=== PATIENT | female | born 1975 | race Caucasian/White ===

== ENCOUNTER 2024-04-26 22:48 | Inpatient (IN) ==
[2024-04-26] MEDS ORDERED: IOPAMIDOL 100 ML BOTTLE IV ONE (22:49)
[2024-04-26] MEDS: IPRATROPIUM/ALBUTEROL 3 ML AMPUL.NEB NEB ONE (23:02)
[2024-04-26] MEDS: methylPREDNISolone SOD SUCC 125 MG/2 ML VIAL IV ONE (23:16)
[2024-04-26 23:26] LABS: Basophils # (Auto) 0.05 K/mcL (0.00-0.30); Basophils % (Auto) 0.2 % (0.0-2.0); Eosinophils # (Auto) 0.07 K/mcL (0.00-0.70); Eosinophils % (Auto) 0.3 % (0.0-7.0); Hematocrit 37.9 % (34.1-44.9); Hemoglobin 11.7 g/dL (11.2-15.7); Lymphocytes # (Auto) 2.64 K/mcL (1.50-4.80); Lymphocytes % (Auto) 11.9 % (15.5-49.0); Mean Cell Volume 91.3 fL (80.0-100.0); Mean Corpuscular HGB Conc 30.9 g/dL (31.0-36.0); Mean Platelet Volume 8.4 fL (8.8-12.5); Monocytes # (Auto) 2.35 K/mcL (0.10-0.90); Monocytes % (Auto) 10.6 % (1.0-12.0); Neutrophils % (Auto) 76.6 % (38.0-78.0); Platelet Count 351 K/mcL (140-440); RBC 4.15 M/mcL (3.59-5.38); WBC 22.1 K/mcL (4.5-11.0)
[2024-04-26 23:39] LABS: ALT/SGPT 11 U/L (<40); AST/SGOT 17 U/L (<32); Albumin 3.9 gm/dL (3.2-5.2); Albumin/Globulin Ratio 1.2 (1.0-2.3); Alkaline Phosphatase 74 U/L (39-117); Bilirubin,Total < 0.2 mg/dL (0.1-1.0); Blood Urea Nitrogen 4 mg/dL (6-20); Calcium 8.8 mg/dL (8.6-10.4); Carbon Dioxide 20 mmol/L (22-30); Chloride 102 mmol/L (96-108); Globulin 3.2 gm/dL (2.2-3.7); Glomerular Filtration Rate 103; Glucose 114 mg/dL (70-105)
[2024-04-27] MEDS: IPRATROPIUM/ALBUTEROL 3 ML AMPUL.NEB NEB ONE (00:07)
[2024-04-27] MEDS: ONDANSETRON 4 MG/2 ML VIAL IV ONE (00:07)
[2024-04-27] MEDS: ACETAMINOPHEN 500 MG TABLET PO ONE (00:07)
[2024-04-27] MEDS: morphine 2 MG/ML VIAL IV ONE (01:28)
[2024-04-27] MEDS: cefTRIAXone 2 GM in DEXTROSE 5% IN WATER 50 ML IV SCH (02:30)
[2024-04-27] MEDS: 0.9 % SODIUM CHLORIDE 1,000 ML IV SCH (03:41)
[2024-04-27] MEDS: morphine 4 MG/ML VIAL IV PRN (04:27)
[2024-04-27] MEDS: BENZONATATE 100 MG CAPSULE PO SCH (04:27)
[2024-04-27] MEDS: guaiFENesin 600 MG TAB.SR.12H PO PRN (04:27)
[2024-04-27] MEDS: 0.9 % SODIUM CHLORIDE 10 ML SYRINGE IV SCH (05:13)
[2024-04-27] MEDS: cefTRIAXone 2 GM in DEXTROSE 5% IN WATER 50 ML IV ONE (06:02)
[2024-04-27] MEDS: BUDESONIDE 0.5 MG/2 ML AMPUL.NEB NEB SCH (08:40)
[2024-04-27] MEDS: ALBUTEROL SULFATE 2.5 MG/3 ML NEBULIZER NEB PRN (08:40)
[2024-04-27] MEDS: ACETAMINOPHEN 325 MG TABLET PO PRN (08:49)
[2024-04-27] MEDS: PANTOPRAZOLE 40 MG TABLET PO SCH ×2 (08:49→13:07)
[2024-04-27] MEDS ORDERED: guaiFENesin 600 MG TAB.SR.12H PO SCH (09:15)
[2024-04-27] MEDS: NICOTINE 14 MG PATCH TOPICAL SCH (10:29)
[2024-04-27] MEDS: LEVOFLOXACIN 750 MG/150 ML BAG IV SCH (10:29)
[2024-04-27] MEDS ORDERED: HYDROcodone/APAP (PP) 5/325MG TABLET (#4) PO PRN (11:36)
[2024-04-27] MEDS ORDERED: traMADol 50 MG TABLET PO PRN (11:40)
[2024-04-27] MEDS ORDERED: ONDANSETRON 4 MG ODT TABLET SL PRN (11:56)
[2024-04-27] MEDS: NITROGLYCERIN 0.4 MG TAB.SUBL SL PRN (12:05)
[2024-04-27] MEDS: DILTIAZEM 180 MG CAP.XL.24H PO SCH (12:05)
[2024-04-27] MEDS: ATORVASTATIN 40 MG TABLET PO SCH (12:05)
[2024-04-27] MEDS: guaiFENesin/CODEINE 10 ML UDC PO PRN (12:05)
[2024-04-27] MEDS: SPIRONOLACTONE 25 MG TABLET PO SCH (12:05)
[2024-04-27] MEDS: ASPIRIN 81 MG TAB.CHEW PO SCH (12:06)
[2024-04-27] MEDS: CLOPIDOGREL 75 MG TABLET PO SCH (12:06)
[2024-04-27] MEDS: SERTRALINE 100 MG TABLET PO SCH (12:06)
[2024-04-27] MEDS: METOPROLOL SUCCINATE 25 MG TAB.XL.24H PO SCH (12:06)
[2024-04-27] MEDS: ISOSORBIDE MONONITRATE 60 MG TAB.XL.24H PO SCH (12:06)
[2024-04-27] MEDS: MAGNESIUM OXIDE 400 MG TABLET PO SCH (12:06)
[2024-04-27] MEDS: Dapagliflozin Propanediol [Farxiga] 10 mg tablet PO SCH (13:05)
[2024-04-27] MEDS: IPRATROPIUM/ALBUTEROL 3 ML AMPUL.NEB NEB SCH (13:07)
[2024-04-27] MEDS: methylPREDNISolone SOD SUCC 40 MG/ML VIAL IV SCH (14:06)
[2024-04-27] MEDS: HYDROcodone/APAP 5/325MG TABLET PO PRN (14:06)
[2024-04-27] MEDS: guaiFENesin 600 MG TAB.SR.12H PO SCH (21:09)
[2024-04-27] MEDS: LORazepam 0.5 MG TABLET PO PRN (21:09)
[2024-04-27] MEDS: Sacubitril-Valsartan [Entresto] 97-103 mg tablet PO SCH (21:10)
[2024-04-27] MEDS: GABAPENTIN 100 MG CAPSULE PO PRN (21:13)
[2024-04-28] MEDS: ONDANSETRON 4 MG/2 ML VIAL IV PRN (02:32)
[2024-04-28] MEDS: LIRAGLUTIDE SUB-Q SCH (09:38)
[2024-04-28] MEDS: LEVOFLOXACIN 750 MG TABLET PO SCH (10:23)
[2024-04-28] MEDS: PNEUMOCOCCAL 23-VAL P-SAC VAC 0.5 ML SYRINGE IM ONE (10:43)
[2024-04-28 13:29] LABS: Basophils # (Auto) 0.01 K/mcL (0.00-0.30); Basophils % (Auto) 0 % (0.0-2.0); Eosinophils # (Auto) 0 K/mcL (0.00-0.70); Eosinophils % (Auto) 0 % (0.0-7.0); Hematocrit 38.2 % (34.1-44.9); Hemoglobin 11.7 g/dL (11.2-15.7); Lymphocytes # (Auto) 1.11 K/mcL (1.50-4.80); Lymphocytes % (Auto) 5.1 % (15.5-49.0); Mean Cell Volume 92.7 fL (80.0-100.0); Mean Corpuscular HGB Conc 30.6 g/dL (31.0-36.0); Mean Platelet Volume 8.8 fL (8.8-12.5); Monocytes # (Auto) 1.01 K/mcL (0.10-0.90); Monocytes % (Auto) 4.6 % (1.0-12.0); Neutrophils % (Auto) 89.9 % (38.0-78.0); Platelet Count 384 K/mcL (140-440); RBC 4.12 M/mcL (3.59-5.38); Red Cell Distribution Width 18.1 % (11.5-14.5); WBC 21.9 K/mcL (4.5-11.0)
[2024-04-28 14:09] LABS: ALT/SGPT 9 U/L (<40); AST/SGOT 15 U/L (<32); Albumin 3.7 gm/dL (3.2-5.2); Albumin/Globulin Ratio 1.1 (1.0-2.3); Alkaline Phosphatase 68 U/L (39-117); Bilirubin,Total < 0.2 mg/dL (0.1-1.0); Blood Urea Nitrogen 13 mg/dL (6-20); Calcium 9.8 mg/dL (8.6-10.4); Carbon Dioxide 23 mmol/L (22-30); Chloride 102 mmol/L (96-108); Globulin 3.4 gm/dL (2.2-3.7); Glomerular Filtration Rate 108; Glucose 155 mg/dL (70-105)
[2024-04-29 06:22] LABS: Basophils # (Auto) 0.01 K/mcL (0.00-0.30); Basophils % (Auto) 0.1 % (0.0-2.0); Eosinophils # (Auto) 0 K/mcL (0.00-0.70); Eosinophils % (Auto) 0 % (0.0-7.0); Hematocrit 35.8 % (34.1-44.9); Lymphocytes # (Auto) 1.03 K/mcL (1.50-4.80); Lymphocytes % (Auto) 6.1 % (15.5-49.0); Mean Cell Volume 91.8 fL (80.0-100.0); Mean Corpuscular HGB Conc 30.7 g/dL (31.0-36.0); Mean Platelet Volume 9.1 fL (8.8-12.5); Monocytes # (Auto) 0.63 K/mcL (0.10-0.90); Monocytes % (Auto) 3.7 % (1.0-12.0); Neutrophils % (Auto) 89.6 % (38.0-78.0); Platelet Count 395 K/mcL (140-440); Red Cell Distribution Width 18.1 % (11.5-14.5); WBC 16.8 K/mcL (4.5-11.0)
[2024-04-29 06:39] LABS: ALT/SGPT 6 U/L (<40); AST/SGOT 11 U/L (<32); Albumin 3.3 gm/dL (3.2-5.2); Albumin/Globulin Ratio 1.2 (1.0-2.3); Alkaline Phosphatase 57 U/L (39-117); Bilirubin,Total < 0.2 mg/dL (0.1-1.0); Blood Urea Nitrogen 15 mg/dL (6-20); Calcium 9.4 mg/dL (8.6-10.4); Carbon Dioxide 26 mmol/L (22-30); Chloride 104 mmol/L (96-108); Globulin 2.8 gm/dL (2.2-3.7); Glomerular Filtration Rate 115; Glucose 135 mg/dL (70-105)
[2024-04-29] MEDS: VARENICLINE TARTRATE 1 MG TABLET PO SCH (15:21)
== END 2024-04-29 15:05 | disposition home or self-care (01) | DRG 871 ==
LOC: ED 22:48 → ICU 04-27 03:30
PROVIDERS: ADMIT Internal Medicine; ATTEND Internal Medicine